=== PATIENT | female | born 1975 | race Caucasian/White ===

== ENCOUNTER 2023-06-02 15:36 | Inpatient (IN) ==
[2023-06-02 16:40] LABS: POC Urine Bilirubin Negative (Negative); POC Urine Blood Trace (Negative); POC Urine Glucose Normal (Normal); POC Urine Ketones 1+ (Small) (Negative); POC Urine Leukocytes Negative (Negative); POC Urine Nitrite Negative (Negative); POC Urine Protein Trace (Negative); POC Urine Urobilinogen Normal (Normal); POC Urine pH 5 (4.5-7.5)
[2023-06-02 16:45] LABS: Appearance Urine Clear (Clear); Bacteria Urine Automated Negative (Negative); Blood Urine Negative (Negative); Color Urine Orange; Epithelial Cell Urine Auto >30 /lpf (0-5); Glucose Urine UA Negative (Negative); Ketones Urine Trace (Negative); Leukocyte Esterase Urine Trace (Negative); Nitrite Urine Positive (Negative); Protein Urine Negative (Negative); RBC Urine Automated 0-4 /hpf (0-4); Urobilinogen Urine Negative (Negative); pH Urine 6.5 (4.5-7.5)
[2023-06-02 16:49] LABS: Albumin Globulin Ratio 1.6 (0.9-2); Albumin Level 4.2 gm/dl (3.4-5.0); BUN Creatinine Ratio 19.2 (10-20); Bilirubin,Total 3.7 mg/dl (0.2-1.0); Calcium 8.8 mg/dl (8.6-10.3); Creatinine Clr Calc Pharmacy 108.3 ml/min; Est GFR (African American) 113.7 ml/min; Est GFR (Non-African American) 98.1 ml/min; Globulin 2.6 gm/dl (2.5-4.0); Potassium 3.9 mmol/L (3.5-5.1); Total Protein 6.8 gm/dl (6.0-8.3)
[2023-06-02 16:56] LABS: Troponin I High Sensitivity 16.2 pg/ml (0-14)
--- NOTE | 2023-06-02 16:58 | XRay Report ---
SINGLE VIEW CHEST CLINICAL HISTORY: Dyspnea FINDINGS: 2 PA chest radiographs are obtained. No prior studies are available for comparison at the t eric of dictation. The cardiomediastinal silhouette is unremarkable. The lungs and pleural spaces are clear. No pneumothorax is seen. The bony thorax is grossly intact. IMPRESSION: No active disease in the chest. ACT 112: Negative or not required by law. Electronically signed by: Akshat Roe M.D. 06/02/2023 4:57 PM
[2023-06-02 17:00] LABS: Bilirubin Urine 1+ (Negative)
[2023-06-02 17:00] LABS: Basophils # (auto) 0.06 K/uL (0.00-0.20); Basophils % (auto) 0.6 %; Eosinophils # (auto) 0.09 K/uL (0.00-0.50); Eosinophils % (auto) 0.9 %; Hematocrit (blood only) 17.8 % (37.0-47.0); Hemoglobin 5.4 g/dl (12.0-16.0); Immature Granulocytes # (auto) 0.19 K/uL (0.01-0.20); Immature Granulocytes % (auto) 1.9 %; Lymphocytes # (auto) 1.13 K/uL (1.20-3.40); Lymphocytes % (auto) 11.3 %; Mean Corpuscular Hemoglobin 35.3 pg (25.0-34.0); Mean Corpuscular Hgb Conc 30.3 g/dL (32.0-36.0); Mean Corpuscular Volume 116.3 fL (80.0-100.0); Mean Platelet Volume 9.3 fL (9.4-12.4); Neutrophils # (auto) 8.17 K/uL (1.40-6.50); Neutrophils % (auto) 81.3 %; Nucleated RBC # (auto) 0.28 K/uL (0.00-0.12); Nucleated RBC % (auto) 2.8 %; Platelet Count 424 K/uL (130-400); Polychromasia 2+; RDW Coefficient of Variation 18.6 % (11.5-14.5); RDW Standard Deviation 67.9 fL (36.4-46.3); Red Blood Count 1.53 M/uL (4.20-5.40); White Blood Count 10.04 K/ul (4.8-10.8)
[2023-06-02] MEDS ORDERED: SODIUM CHLORIDE 0.9% 250 ML IV PRN ×3 (17:35→21:27)
--- NOTE | 2023-06-02 17:50 | Emergency Department Note ---
Impression & Plan Severe anemia, Elevated LFTs, Acute right flank pain, Elevated troponin ED Provider Note NAME: BRADLY JACINTO AGE: 47 SEX: Female INFORMANT: Patient ED PROVIDER(S): Johny Boles MD CHIEF COMPLAINT: Shortness of breath, palpitations PLAN: Disposition: Admitted Outpatient prescription management: none Referral: None MEDICAL DECISION MAKING: patient presented with the above complaints. She had an IV established and blood work obtained. She was found to have a severe anemia with a hemoglobin of 5.4. Patient has no history of anemia. Her chemistry panel also revealed the presence of elevated LFTs including an elevated bilirubin. Patient was consented for blood transfusion. CT imaging was ordered to further evaluate the LFT elevation and right flank pain. Patient did not have any tenderness in the right upper quadrant on physical examination. She declined analgesia. ECG did show tachycardia and poor R wave progression but no acute ST elevation or depression. Patient has not had any chest pain with her shortness of breath. The patient underwent CT imaging. Horseshoe kidney noted. No acute findings noted in the abdomen or pelvis per radiology. Ultrasound imaging ordered due to the elevated LFTs. Urinalysis did show some nitrate but no clear evidence of infection. Patient does not have a leukocytosis. Given the symptomatic anemia discussed transfusion. 2 units ordered. Blood bank to no antibody screen was abnormal. [facility] Patient was evaluated in the ER and admitted for further management. Care/management discussed with: manager heavy equipment Level of care consideration(s): After review of the information above and other included data, I feel the patient requires escalation of care to admission. Triage Nursing notes: reviewed and agree them. Vital Signs: reviewed and remarkable for tachycardia Additional History obtained from: none Chronic Medical/Social Conditions affecting care: none Prior/ Outside/ External records reviewed: none Differential Diagnosis: Infection, dehydration, metabolic abnormality, hypo/hyperglycemia, electrolyte disturbance, anemia, hypoxia, cardiac sources, intracerebral event, toxicologic, neurologic, as well as other pathologies. Diagnostics, independently interpreted by me: ECG: Twelve-lead ECG reveals sinus tachycardia 107 bpm. Poor R wave progression. Inferior Q waves. No ST elevation. Cardiac Monitoring: Cardiac monitoring ordered by me: The patient was placed on continuous cardiac monitoring and observed. It revealed a sinus tachycardia at 102 beats per minute without ectopy or evidence of dysrhythmia. Medical decision rules: none Imaging studies: Chest x-ray. Findings: A chest x-ray was performed and revealed no pneumothorax, effusion, infiltrate, pulmonary edema, free air under the diaphragm, or wide mediastinum. Impression: No acute disease. HPI: 47 year old Female arrives for evaluation of shortness of breath and palpitation. This started 2 days ago and is worsening. The patient also notes the following associated symptoms, dyspnea on exertion, dark urine, right flank pain that is nonradiating. The patient has found no relieving factors. Current pain is rated as 6/10. Pt denies LOC, headache, fevers, chills, diaphoresis, visual changes, neck pain, chest pain, nausea, vomiting, abdominal pain, left back pain, melena, hematochezia, numbness, weakness, lymphadenopathy, rash, or other complaints. PAST MEDICAL HISTORY: See Below, patient denies PAST SURGICAL HISTORY: See Below, SOCIAL HISTORY: See Below, non-smoker HOME MEDICATIONS: See Below ALLERGIES: See Below VITALS: See Below PHYSICAL EXAMINATION: GENERAL: Awake, tired-appearing, in no distress HENT: Normocephalic, atraumatic. Oropharynx unremarkable. EYES: Pale conjunctiva. Sclera non-icteric. NECK: Inspection normal. Non-tender. Supple. No nuchal rigidity. FROM. No masses. RESPIRATORY: Clear to auscultation. No wheezes. No rales. Normal respiratory effort. CARDIAC: Normal rate. Normal rhythm. No murmurs. No rubs. Extremities warm and well perfused. Pulses equal. No JVD. GI: Soft, non-distended. No tenderness to palpation. No rebound or guarding. No masses. RECTAL: Deferred. MUSCULOSKELETAL: Atraumatic. Chest examination reveals no tenderness. The back is symmetrical on inspection without obvious abnormality. There is no CVA tenderness to palpation. No joint edema. LOWER EXTREMITIES: Calves are equal size bilaterally and non-tender. No edema. No discoloration. NEURO: Normal sensorium. No sensory or motor deficits noted. SKIN: Mild jaundice present. No rash, petechia, purpura noted. PROCEDURES: none CRITICAL CARE: I have personally spent 40 minutes of critical care time in the direct management of this patient. This includes bedside care, interpretation of diagnostic studies, and testing, discussion with consultants, patient, and family members, and other required patient management activities. These minutes are in excess of all separately billable procedures. OBSERVATION NOTE: none Past Med/Surg History Medical History No significant past medical history Surgical History No pertinent past surgical history Family History Father Heart disease Other No family history of adverse response to anesthesia No family history of bleeding disorder Social History Smoking Status: Never smoker Hx Alcohol Use: No Hx Substance Use: No Preferred Language: Albanian Communication Ability: Effective current occupation: [employer] Feels Safe at Home: Yes Allergies Allergies Allergy/AdvReac Type Severity Reaction Status Date / Time No Known Allergies Allergy Verified 06/02/23 17:35 Home Meds Home Medications Medication Instructions Recorded Confirmed cranberry fruit concentrate 250 mg 250 mg PO DIRECTED PRN BLADDER 06/02/23 06/02/23 chewable tablet (Azo Cranberry) DISCOMFORT naproxen sodium 220 mg tablet 440 mg PO DIRECTED PRN Pain 06/02/23 06/02/23 (Aleve) Results & Data (ED) Vital Signs Vital Signs - 24 hr 06/02/23 15:48 06/02/23 17:02 06/02/23 17:05 Temperature 37.0 C Temperature Source Temporal Artery Scan Pulse Rate 106 H 102 H Pulse Rate [Apical] 102 H Pulse Rhythm Regular Pulse Rhythm [Apical] Regular Pulse Strength Normal Respiratory Rate 20 18 Respiratory Effort / Characteristics Non-Labored Spontaneous Non-Labored Respiratory Depth Normal Normal Respiratory Pattern Regular Blood Pressure 150/76 H Blood Pressure [Right Arm] 130/69 Blood Pressure Mean 100 Blood Pressure Mean [Right Arm] 89 Blood Pressure Position Sitting Pulse Oximetry 100 100 Oxygen Delivery Method Room Air Room Air Sepsis Recent Fever Within 48 Hours No Sepsis New/Unexplained Change in Mental Status No Sepsis Action Taken by Nursing No Action Required Laboratory Data 06/02/23 16:15 06/02/23 16:15 Lab Results 06/02/23 06/02/23 06/02/23 Range/Units 16:15 16:31 18:01 WBC 10.04 (4.8-10.8) K/ul RBC 1.53 L (4.20-5.40) M/uL Hgb 5.4 L* (12.0-16.0) g/dl Hct 17.8 L* (37.0-47.0) % MCV 116.3 H (80.0-100.0) fL MCH 35.3 H (25.0-34.0) pg MCHC 30.3 L (32.0-36.0) g/dL RDW Std Deviation 67.9 H (36.4-46.3) fL RDW Coeff of Lamar 18.6 H (11.5-14.5) % Plt Count 424 H (130-400) K/uL MPV 9.3 L (9.4-12.4) fL Immature Gran % (Auto) 1.9 % Neut % (Auto) 81.3 % Lymph % (Auto) 11.3 % Rains % (Auto) 4.0 % Eos % (Auto) 0.9 % Baso % (Auto) 0.6 % Neut # (Auto) 8.17 H (1.40-6.50) K/uL Lymph # (Auto) 1.13 L (1.20-3.40) K/uL Rains # (Auto) 0.40 (0.11-0.59) K/uL Eos # (Auto) 0.09 (0.00-0.50) K/uL Baso # (Auto) 0.06 (0.00-0.20) K/uL Immature Gran # (Auto) 0.19 (0.01-0.20) K/uL Absolute Nucleated RBC 0.28 H (0.00-0.12) K/uL Nucleated RBC % (auto) 2.8 % Polychromasia 2+ Sodium 133 L (136-145) mmol/L Potassium 3.9 (3.5-5.1) mmol/L Chloride 100 (98-107) mmol/L Carbon Dioxide 23 (21-32) mmol/L Anion Gap 10 (3-11) BUN 14 (6-23) mg/dl Creatinine 0.73 (0.6-1.2) mg/dl Est Cr Clr Drug Dosing 108.3 ml/min Est GFR ( Amer) 113.7 ml/min Est GFR (Non-Af Amer) 98.1 ml/min BUN/Creatinine Ratio 19.2 (10-20) Glucose 123 H (70-99(Fasting)) mg/dl Calcium 8.8 (8.6-10.3) mg/dl Total Bilirubin 3.7 H (0.2-1.0) mg/dl AST 47 H (13-39) U/L ALT 63 H (7-52) U/L Alkaline Phosphatase 63 (34-104) U/L Troponin I High Sens 16.2 H (0-14) pg/ml Total Protein 6.8 (6.0-8.3) gm/dl Albumin 4.2 (3.4-5.0) gm/dl Globulin 2.6 (2.5-4.0) gm/dl Albumin/Globulin Ratio 1.6 (0.9-2) Amylase 23 L (25-115) U/L Lipase 26 (11-82) U/L Urine Color Allen Urine Appearance Clear (Clear) Urine pH 6.5 (4.5-7.5) POC Urine pH 5 (4.5-7.5) Ur Specific Wagoner 1.020 (1.000-1.030) Urine Protein Negative (Negative) POC Urine Protein Trace H (Negative) Urine Glucose (UA) Negative (Negative) POC Ur Glucose (UA) Normal (Normal) Urine Ketones Trace H (Negative) POC Urine Ketones 1+ (Small) H (Negative) Urine Blood Negative (Negative) POC Urine Blood Trace H (Negative) Urine Nitrite Positive A (Negative) POC Urine Nitrite Negative (Negative) Urine Bilirubin 1+ H (Negative) POC Urine Bilirubin Negative (Negative) Urine Urobilinogen Negative (Negative) POC Urine Urobilinogen Normal (Normal) Ur Leukocyte Esterase Trace H (Negative) POC U Leukocyte Esteras Negative (Negative) Urine WBC (Auto) 1-5 (0-5) /hpf Urine RBC (Auto) 0-4 (0-4) /hpf U Hyaline Cast (Auto) 1-5 (0-5) /lpf U Epithel Cells (Auto) >30 H (0-5) /lpf Urine Bacteria (Auto) Negative (Negative) POC Ur Test NEG (NEG) Blood Type A Positive Blood Type Recheck A Positive Antibody Screen POSITIVE A Crossmatch See Detail Administered Medications Discontinued Medications Ioversol (Optiray 320 500ml) 92 ml IV ONCE ONE Stop: 06/02/23 17:54 Last Admin: 06/02/23 17:53 Dose: 92 ml Documented By: MATT Imaging Data Radiologist's Impression: Chest X-Ray 06/02/23 15:51 SINGLE VIEW CHEST CLINICAL HISTORY: Dyspnea FINDINGS: 2 PA chest radiographs are obtained. No prior studies are available for comparison at the time of dictation. The cardiomediastinal silhouette is unremarkable. The lungs and pleural spaces are clear. No pneumothorax is seen. The bony thorax is grossly intact. IMPRESSION: No active disease in the chest. ACT 112: Negative or not required by law. Electronically signed by: Akshat Roe M.D. 06/02/2023 4:57 PM Abdomen/Pelvis CT 06/02/23 17:35 CT SCAN OF THE ABDOMEN AND PELVIS WITH IV CONTRAST CLINICAL HISTORY: Right flank pain. Anemia. COMPARISON STUDY: No priors. TECHNIQUE: Following the IV administration of 92 cc of Optiray 320, CT scan of the abdomen and pelvis is performed from the lung bases to the proximal femora. Images are reviewed in the axial, sagittal, and coronal planes. IV contrast was administered without complication. A dose lowering technique was utilized adhering to the principles of ALARA. CT DOSE: 1503.96 mGy.cm FINDINGS: Lung bases: The heart is normal in size and without pericardial effusion. The lung bases are clear. Liver: The contrast-enhanced liver is enlarged, measuring 18.5 cm in length. The liver demonstrates diffusely diminished attenuation indicating steatosis. Fatty sparing is seen adjacent to the gallbladder fossa There is no intrahepatic biliary ductal dilatation. The hepatic veins and portal veins are patent. Gallbladder: Unremarkable. Spleen: Normal in size and attenuation. Pancreas: Unremarkable. Adrenal glands: Unremarkable. Kidneys: Horseshoe kidney is noted. The contrast enhanced renal moieties are normal in size and without hydronephrosis. The renal moieties enhance symmetrically. A retrocardiac left renal vein is incidentally noted. Abdominal vasculature: The abdominal aorta is normal in course and caliber. Bowel: No bowel obstruction is seen. The appendix is well-visualized and normal. Peritoneum/retroperitoneal: There is no intraperitoneal free air or abdominal ascites. There is no retroperitoneal hematoma. Lymphadenopathy: None. Pelvic viscera: The bladder, uterus, and adnexa are normal as visualized noting bilateral ovarian follicles Skeletal structures: No lytic or blastic lesions are seen. IMPRESSION: 1. No acute infectious or inflammatory findings are identified in the abdomen or pelvis. 2. Hepatomegaly and hepatic steatosis. 3. Horseshoe kidney is incidentally noted. 4. Additional findings as above. ACT 112: Negative or not required by law. Electronically signed by: Akshat Roe M.D. 06/02/2023 6:09 PM Discharge Plan Visit Data Chief Complaint: Illness Stated Complaint: TACHYCARDIA,SOB,LOWER BACK PAIN,DARK URINE ED Provider: Johny Boles Discharge Problem: Severe anemia, Elevated LFTs, Acute right flank pain, Elevated troponin Forms Stand Alone Forms: My [employer] Prescriptions Prescriptions: No Action naproxen sodium [Aleve] 220 mg Tablet 440 mg PO DIRECTED PRN (Reason: Pain) Azo Cranberry 250 mg Tablet,Chewable 250 mg PO DIRECTED PRN (Reason: BLADDER DISCOMFORT) Referrals Referrals: Mandy Barrientos MD [Primary Care Provider] -
[2023-06-02] MEDS ORDERED: OPTIRAY 320 500ml IV ONE (17:53)
--- NOTE | 2023-06-02 18:11 | CT Scan Report ---
CT SCAN OF THE ABDOMEN AND PELVIS WITH IV CONTRAST CLINICAL HISTORY: Right flank pain. Anemia. COMPARISON STUDY: No priors. TECHNIQUE: Following the IV administration of 92 cc of Optiray 320, CT scan of the abdomen and pelvi s is performed from the lung bases to the proximal femora. Images are reviewed in the axial, sagittal , and coronal planes. IV contrast was administered without complication. A dose lowering technique wa s utilized adhering to the principles of ALARA. CT DOSE: 1503.96 mGy.cm FINDINGS: Lung bases: The heart is normal in size and without pericardial effusion. The lung bases are clear. Liver: The contrast-enhanced liver is enlarged, measuring 18.5 cm in length. The liver demonstrates d iffusely diminished attenuation indicating steatosis. Fatty sparing is seen adjacent to the gallbladd er fossa There is no intrahepatic biliary ductal dilatation. The hepatic veins and portal veins are p atent. Gallbladder: Unremarkable. Spleen: Normal in size and attenuation. Pancreas: Unremarkable. Adrenal glands: Unremarkable. Kidneys: Horseshoe kidney is noted. The contrast enhanced renal moieties are normal in size and witho ut hydronephrosis. The renal moieties enhance symmetrically. A retrocardiac left renal vein is incide ntally noted. Abdominal vasculature: The abdominal aorta is normal in course and caliber. Bowel: No bowel obstruction is seen. The appendix is well-visualized and normal. Peritoneum/retroperitoneal: There is no intraperitoneal free air or abdominal ascites. There is no re troperitoneal hematoma. Lymphadenopathy: None. Pelvic viscera: The bladder, uterus, and adnexa are normal as visualized noting bilateral ovarian fol licles Skeletal structures: No lytic or blastic lesions are seen. IMPRESSION: 1. No acute infectious or inflammatory findings are identified in the abdomen or pelvis. 2. Hepatomegaly and hepatic steatosis. 3. Horseshoe kidney is incidentally noted. 4. Additional findings as above. ACT 112: Negative or not required by law. Electronically signed by: Akshat Roe M.D. 06/02/2023 6:09 PM
[2023-06-02] MEDS ORDERED: NSS + 20MEQ KCL 20 MEQ/1,000 ML BAG IV ONE (19:21)
[2023-06-02 19:30] LABS: Reticulocyte % 15.5 % (0.5-2.0); Reticulocytes # 0.23 10^6/uL (0.02-0.10)
--- NOTE | 2023-06-02 20:04 | Ultrasound Report ---
ULTRASOUND RIGHT UPPER QUADRANT ABDOMEN CLINICAL HISTORY: Elevated hepatic transaminases. Right flank pain. COMPARISON STUDY: Abdominal CT dated 06/02/2023 TECHNIQUE: Real-time, grayscale, and color flow sonography of the right upper quadrant of the abdomen was performed. Images are reviewed in the transverse and longitudinal planes. FINDINGS: Liver: The liver is enlarged and demonstrates heterogeneous increased echotexture indicating steatosi s. There is no intrahepatic biliary ductal dilatation. The main portal vein is patent. Gallbladder: The gallbladder is normal in appearance. No shadowing gallstones are identified. There i s no gallbladder wall thickening or pericholecystic fluid. A sonographic Barker's sign is reportedly absent. The common bile duct measures up to 0.4 cm in diameter. Pancreas: Visualized portions of the pancreatic head and body are normal in appearance. Right kidney: Survey images of the right kidney demonstrate normal size and echotexture. There is no hydronephrosis. Ascites: None. IMPRESSION: 1. No acute sonographic abnormality is seen in the right upper quadrant. 2. Hepatomegaly and hepatic steatosis. ACT 112: Negative or not required by law. Electronically signed by: Akshat Roe M.D. 06/02/2023 8:02 PM
[2023-06-02 20:05] LABS: Folate (Folic Acid),Ser orPlas 10.73 ng/ml (>5.38)
[2023-06-02] MEDS ORDERED: cefTRIAXone SODIUM 2,000 MG/50 ML BAG IV STA (20:25)
[2023-06-02 20:58] LABS: Troponin I High Sensitivity 11.9 pg/ml (0-14)
[2023-06-02 20:59] LABS: Ferritin 651.8 ng/ml (8-388)
--- NOTE | 2023-06-02 21:24 | History & Physical Report ---
Date of Service June 02, 2023 Assessment & Plan (1) Sepsis: Plan: Secondary to UTI Symptomatic anemia Hepatomegaly on imaging Hyperglycemia rule out DM Medical telemetry CS, Ceftriaxone Transfuse PRBC for symptomatic anemia, initially aim for hemoglobin of at least 7 Anemia workup, hematology consult re: new onset anemia Hepatitis workup, outpatient GI consult re: hepatomegaly Check hemoglobin A1c DVT prophylaxis. Lovenox subcu Full code Patient requesting updates providers. Mr. Norbert Perrin, contact #[phone]. Text document was generated using [employer] voice recognition software. It may contain grammatical or spelling errors. Kindly contact undersigned for clarification of any documentation item in question. History of Present Illness Chief Complaint: Shortness of breath, flank pain, weakness Primary Care Provider: Mandy Barrientos MD History obtained from patient, family, and records. No significant medical history. 2 days history of palpitations associated with worsening shortness of breath especially on exertion. No actual chest pain or headache complaints. Patient noted herself to be pale. Achy flank pain complaints without abdominal pain, black stools, bloody stools, hematuria, menorrhagia symptoms. No OTC herbal meds except for cranberry preparation. No previous blood transfusions. Patient brought by to ER for evaluation. Medical History as above Surgical History : Right hand glass trauma surgery Family History : DM, heart disease Personal/Social history : Non-smoker, no EtOH intake, currently unemployed, previous work at a [employer] Allergies Allergy/AdvReac Type Severity Reaction Status Date / Time No Known Allergies Allergy Verified 06/02/23 17:35 Home Medications Medication Instructions Recorded Confirmed Type cranberry fruit concentrate 250 mg 250 mg PO DIRECTED PRN BLADDER 06/02/23 06/02/23 History chewable tablet (Azo Cranberry) DISCOMFORT naproxen sodium 220 mg tablet 440 mg PO DIRECTED PRN Pain 06/02/23 06/02/23 History (Aleve) Past Med/Surg History Medical History No significant past medical history Surgical History No pertinent past surgical history Family History Father Heart disease Other No family history of adverse response to anesthesia No family history of bleeding disorder Social History Smoking Status: Never smoker Hx Alcohol Use: No Hx Substance Use: No Preferred Language: Kittitian Communication Ability: Effective current occupation: Retail - Production Support Consultant Feels Safe at Home: Yes Review of Systems Review of Systems: As per HPI, all other systems reviewed and negative Physical Exam Physical Exam: GENERAL: Comfortable, slightly anxious, morbidly obese, no respiratory distress SKIN: Pallor, warm HEENT: Pale palpebral conjunctivae, no ptosis, dry buccal mucosa NECK : Supple, short neck, no tenderness CHEST : CTA, no tenderness HEART : Tachycardic, no obvious murmurs ABDOMEN: Some distention, nontender EXTREMITIES : Minimal LE swelling, no LE tenderness, no other conspicuous deformities noted NEUROLOGIC : Coherent, no facial asymmetry, no other gross focality Results & Data Results & Data Vital Signs (Past 12 Hours) Vital Signs Temp Pulse Pulse Resp BP BP Pulse Ox 06/02/23 21:00 36.9 C 108 H 20 135/74 100 06/02/23 20:59 106 H 06/02/23 19:00 98 H 20 126/70 99 06/02/23 17:05 102 H 06/02/23 17:02 102 H 18 130/69 100 06/02/23 15:48 37.0 C 106 H 20 150/76 H 100 O2 Del Method 06/02/23 21:00 Room Air 06/02/23 20:59 06/02/23 19:00 Room Air 06/02/23 17:05 06/02/23 17:02 Room Air 06/02/23 15:48 Room Air Laboratory Results Laboratory Results WBC 10.04 K/ul (4.8-10.8) 06/02/23 16:15 RBC 1.53 M/uL (4.20-5.40) L 06/02/23 16:15 Hgb 5.4 g/dl (12.0-16.0) L* 06/02/23 16:15 Hct 17.8 % (37.0-47.0) L* 06/02/23 16:15 MCV 116.3 fL (80.0-100.0) H 06/02/23 16:15 MCH 35.3 pg (25.0-34.0) H 06/02/23 16:15 MCHC 30.3 g/dL (32.0-36.0) L 06/02/23 16:15 RDW Std Deviation 67.9 fL (36.4-46.3) H 06/02/23 16:15 RDW Coeff of [place]ar 18.6 % (11.5-14.5) H 06/02/23 16:15 Plt Count 424 K/uL (130-400) H 06/02/23 16:15 MPV 9.3 fL (9.4-12.4) L 06/02/23 16:15 Immature Gran % (Auto) 1.9 % 06/02/23 16:15 Neut % (Auto) 81.3 % 06/02/23 16:15 Lymph % (Auto) 11.3 % 06/02/23 16:15 [place] % (Auto) 4.0 % 06/02/23 16:15 Eos % (Auto) 0.9 % 06/02/23 16:15 Baso % (Auto) 0.6 % 06/02/23 16:15 Reticulocyte % (Auto) 15.5 % (0.5-2.0) H 06/02/23 16:15 Neut # (Auto) 8.17 K/uL (1.40-6.50) H 06/02/23 16:15 Lymph # (Auto) 1.13 K/uL (1.20-3.40) L 06/02/23 16:15 [place] # (Auto) 0.40 K/uL (0.11-0.59) 06/02/23 16:15 Eos # (Auto) 0.09 K/uL (0.00-0.50) 06/02/23 16:15 Baso # (Auto) 0.06 K/uL (0.00-0.20) 06/02/23 16:15 Reticulocyte # 0.23 10^6/uL (0.02-0.10) H 06/02/23 16:15 Immature Gran # (Auto) 0.19 K/uL (0.01-0.20) 06/02/23 16:15 Absolute Nucleated RBC 0.28 K/uL (0.00-0.12) H 06/02/23 16:15 Nucleated RBC % (auto) 2.8 % 06/02/23 16:15 Polychromasia 2+ 06/02/23 16:15 PT 11.0 Seconds (9.0-12.0) 06/02/23 16:15 INR 1.0 (0.9-1.1) 06/02/23 16:15 Sodium 133 mmol/L (136-145) L 06/02/23 16:15 Potassium 3.9 mmol/L (3.5-5.1) 06/02/23 16:15 Chloride 100 mmol/L (98-107) 06/02/23 16:15 Carbon Dioxide 23 mmol/L (21-32) 06/02/23 16:15 Anion Gap 10 (3-11) 06/02/23 16:15 BUN 14 mg/dl (6-23) 06/02/23 16:15 Creatinine 0.73 mg/dl (0.6-1.2) 06/02/23 16:15 Est Cr Clr Drug Dosing 108.3 ml/min 06/02/23 16:15 Est GFR ( Amer) 113.7 ml/min 06/02/23 16:15 Est GFR (Non-Af Amer) 98.1 ml/min 06/02/23 16:15 BUN/Creatinine Ratio 19.2 (10-20) 06/02/23 16:15 Glucose 123 mg/dl (70-99(Fasting)) H 06/02/23 16:15 Estimat Average Glucose Cancelled 06/02/23 16:15 Hemoglobin A1c Cancelled 06/02/23 16:15 Lactate 2.8 mmol/L (0.4-2.0) H* 06/02/23 20:00 Calcium 8.8 mg/dl (8.6-10.3) 06/02/23 16:15 Iron 343 mcg/dl (35-150) H 06/02/23 20:00 Transferrin 276 mg/dl (200-360) 06/02/23 20:00 Ferritin 651.8 ng/ml (8-388) H 06/02/23 20:00 Total Bilirubin 3.7 mg/dl (0.2-1.0) H 06/02/23 16:15 AST 47 U/L (13-39) H 06/02/23 16:15 ALT 63 U/L (7-52) H 06/02/23 16:15 Alkaline Phosphatase 63 U/L (34-104) 06/02/23 16:15 Lactate Dehydrogenase 602 U/L (86-244) H 06/02/23 16:15 Troponin I High Sens 11.9 pg/ml (0-14) D 06/02/23 20:00 Total Protein 6.8 gm/dl (6.0-8.3) 06/02/23 16:15 Albumin 4.2 gm/dl (3.4-5.0) 06/02/23 16:15 Globulin 2.6 gm/dl (2.5-4.0) 06/02/23 16:15 Albumin/Globulin Ratio 1.6 (0.9-2) 06/02/23 16:15 Amylase 23 U/L (25-115) L 06/02/23 16:15 Lipase 26 U/L (11-82) 06/02/23 16:15 Vitamin B12 302 pg/ml (180-914) 06/02/23 16:15 Folate 10.73 ng/ml (>5.38) 06/02/23 16:15 Procalcitonin 0.25 ng/ml (0-0.5) 06/02/23 19:19 Urine Color [place] 06/02/23 16:31 Urine Appearance Clear (Clear) 06/02/23 16:31 Urine pH 6.5 (4.5-7.5) 06/02/23 16:31 POC Urine pH 5 (4.5-7.5) 06/02/23 16:31 Ur Specific [place] 1.020 (1.000-1.030) 06/02/23 16:31 Urine Protein Negative (Negative) 06/02/23 16:31 POC Urine Protein Trace (Negative) H 06/02/23 16:31 Urine Glucose (UA) Negative (Negative) 06/02/23 16: POC Ur Glucose (UA) Normal (Normal) 06/02/23 16: Urine Ketones Trace (Negative) H 06/02/23 16:31 POC Urine Ketones 1+ (Small) (Negative) H 06/02/23 16:31 Urine Blood Negative (Negative) 06/02/23 16: POC Urine Blood Trace (Negative) H 06/02/23 16:31 Urine Nitrite Positive (Negative) A 06/02/23 16:31 POC Urine Nitrite Negative (Negative) 06/02/23 16:31 Urine Bilirubin 1+ (Negative) H 06/02/23 16:31 POC Urine Bilirubin Negative (Negative) 06/02/23 16:31 Urine Urobilinogen Negative (Negative) 06/02/23 16:31 POC Urine Urobilinogen Normal (Normal) 06/02/23 16:31 Ur Leukocyte Esterase Trace (Negative) H 06/02/23 16:31 POC U Leukocyte Esteras Negative (Negative) 06/02/23 16:31 Urine WBC (Auto) 1-5 /hpf (0-5) 06/02/23 16:31 Urine RBC (Auto) 0-4 /hpf (0-4) 06/02/23 16:31 U Hyaline Cast (Auto) 1-5 /lpf (0-5) 06/02/23 16:31 U Epithel Cells (Auto) >30 /lpf (0-5) H 06/02/23 16:31 Urine Bacteria (Auto) Negative (Negative) 06/02/23 16:31 POC Ur Test NEG (NEG) 06/02/23 16:31 Blood Type A Positive 06/02/23 18:01 Blood Type Recheck A Positive 06/02/23 18:01 Antibody Screen POSITIVE A 06/02/23 18:01 Direct Antiglob Test Positive (Negative) A 06/02/23 18:01 LAUREEN (IgG-AHG) 4+ (Negative) A 06/02/23 18:01 LAUREEN, Polyspecific 4+ (Negative) A 06/02/23 18:01 LAUREEN C3b, C3d 5 Min Neg (Negative) 06/02/23 18:01 Crossmatch See Detail 06/02/23 18:01 Impressions Chest X-Ray 06/02/23 15:51 SINGLE VIEW CHEST CLINICAL HISTORY: Dyspnea FINDINGS: 2 PA chest radiographs are obtained. No prior studies are available for comparison at the time of dictation. The cardiomediastinal silhouette is unremarkable. The lungs and pleural spaces are clear. No pneumothorax is seen. The bony thorax is grossly intact. IMPRESSION: No active disease in the chest. ACT 112: Negative or not required by law. Electronically signed by: Akshat Roe M.D. 06/02/2023 4:57 PM Abdomen/Pelvis CT 06/02/23 17:35 CT SCAN OF THE ABDOMEN AND PELVIS WITH IV CONTRAST CLINICAL HISTORY: Right flank pain. Anemia. COMPARISON STUDY: No priors. TECHNIQUE: Following the IV administration of 92 cc of Optiray 320, CT scan of the abdomen and pelvis is performed from the lung bases to the proximal femora. Images are reviewed in the axial, sagittal, and coronal planes. IV contrast was administered without complication. A dose lowering technique was utilized adhering to the principles of ALARA. CT DOSE: 1503.96 mGy.cm FINDINGS: Lung bases: The heart is normal in size and without pericardial effusion. The lung bases are clear. Liver: The contrast-enhanced liver is enlarged, measuring 18.5 cm in length. The liver demonstrates diffusely diminished attenuation indicating steatosis. Fatty sparing is seen adjacent to the gallbladder fossa There is no intrahepatic biliary ductal dilatation. The hepatic veins and portal veins are patent. Gallbladder: Unremarkable. Spleen: Normal in size and attenuation. Pancreas: Unremarkable. Adrenal glands: Unremarkable. Kidneys: Horseshoe kidney is noted. The contrast enhanced renal moieties are normal in size and without hydronephrosis. The renal moieties enhance symmetrically. A retrocardiac left renal vein is incidentally noted. Abdominal vasculature: The abdominal aorta is normal in course and caliber. Bowel: No bowel obstruction is seen. The appendix is well-visualized and normal. Peritoneum/retroperitoneal: There is no intraperitoneal free air or abdominal ascites. There is no retroperitoneal hematoma. Lymphadenopathy: None. Pelvic viscera: The bladder, uterus, and adnexa are normal as visualized noting bilateral ovarian follicles Skeletal structures: No lytic or blastic lesions are seen. IMPRESSION: 1. No acute infectious or inflammatory findings are identified in the abdomen or pelvis. 2. Hepatomegaly and hepatic steatosis. 3. Horseshoe kidney is incidentally noted. 4. Additional findings as above. ACT 112: Negative or not required by law. Electronically signed by: Akshat Roe M.D. 06/02/2023 6:09 PM Gallbladder Ultrasound 06/02/23 18:17 ULTRASOUND RIGHT UPPER QUADRANT ABDOMEN CLINICAL HISTORY: Elevated hepatic transaminases. Right flank pain. COMPARISON STUDY: Abdominal CT dated 06/02/2023 TECHNIQUE: Real-time, grayscale, and color flow sonography of the right upper quadrant of the abdomen was performed. Images are reviewed in the transverse and longitudinal planes. FINDINGS: Liver: The liver is enlarged and demonstrates heterogeneous increased echotexture indicating steatosis. There is no intrahepatic biliary ductal dilatation. The main portal vein is patent. Gallbladder: The gallbladder is normal in appearance. No shadowing gallstones are identified. There is no gallbladder wall thickening or pericholecystic fluid. A sonographic Barker's sign is reportedly absent. The common bile duct measures up to 0.4 cm in diameter. Pancreas: Visualized portions of the pancreatic head and body are normal in appearance. Right kidney: Survey images of the right kidney demonstrate normal size and echotexture. There is no hydronephrosis. Ascites: None. IMPRESSION: 1. No acute sonographic abnormality is seen in the right upper quadrant. 2. Hepatomegaly and hepatic steatosis. ACT 112: Negative or not required by law. Electronically signed by: Akshat Roe M.D. 06/02/2023 8:02 PM Diagnostic Findings EKG as per my interpretation : Rate 110, sinus tachycardia, normal axis, septal infarct, no ischemia
[2023-06-02] MEDS ORDERED: LORazepam 0.5 MG TAB PO PRN (21:27)
[2023-06-02] MEDS ORDERED: PROMETHAZINE HCL 12.5 MG in SODIUM CHLORIDE 0.9% 50 ML IV PRN (21:27)
[2023-06-02 21:57] LABS: Magnesium 2.2 mg/dl (1.7-2.4)
[2023-06-03 07:03] LABS: BUN Creatinine Ratio 17.2 (10-20); Calcium 8.2 mg/dl (8.6-10.3); Creatinine Clr Calc Pharmacy 123.3 ml/min; Est GFR (African American) 123.2 ml/min; Est GFR (Non-African American) 106.3 ml/min; Potassium 4.1 mmol/L (3.5-5.1)
[2023-06-03 07:44] LABS: Hematocrit (blood only) 15.2 % (37.0-47.0); Hemoglobin 4.7 g/dl (12.0-16.0); Mean Corpuscular Hemoglobin 36.4 pg (25.0-34.0); Mean Corpuscular Hgb Conc 30.9 g/dL (32.0-36.0); Mean Corpuscular Volume 117.8 fL (80.0-100.0); Mean Platelet Volume 9.4 fL (9.4-12.4); Nucleated RBC # (auto) 0.21 K/uL (0.00-0.12); Nucleated RBC % (auto) 2.6 %; Platelet Count 396 K/uL (130-400); RDW Coefficient of Variation 19.5 % (11.5-14.5); RDW Standard Deviation 72.3 fL (36.4-46.3); Red Blood Count 1.29 M/uL (4.20-5.40); White Blood Count 8.07 K/ul (4.8-10.8)
[2023-06-03 08:32] LABS: Anisocytosis Present; Basophils # (auto) 0.05 K/uL (0.00-0.20); Basophils % (auto) 0.6 %; Eosinophils # (auto) 0.13 K/uL (0.00-0.50); Eosinophils % (auto) 1.6 %; Immature Granulocytes # (auto) 0.17 K/uL (0.01-0.20); Immature Granulocytes % (auto) 2.1 %; Lymphocytes # (auto) 1.13 K/uL (1.20-3.40); Monocytes # (auto) 0.43 K/uL (0.11-0.59); Monocytes % (auto) 5.3 %; Neutrophils # (auto) 6.16 K/uL (1.40-6.50); Neutrophils % (auto) 76.4 %; Polychromasia 3+
[2023-06-03] MEDS ORDERED: ENOXAPARIN INJ 40 MG/0.4 ML SYR SQ SCH (09:00)
[2023-06-03] MEDS ORDERED: POLYETHYLENE (MIRALAX) 17 GM PACK PO PRN (11:37)
[2023-06-03] MEDS ORDERED: DOCUSATE SODIUM 100 MG CAP PO PRN (11:37)
--- NOTE | 2023-06-03 15:55 | Hospitalist Progress Note ---
Date of Service June 03, 2023 Assessment & Plan (1) Sepsis: Plan: Symptomatic macrocytic anemia Thrombocytosis -- Peripheral smear showed no signs of significant schistocytes Increased iron, ferritin levels on iron panel Normal vitamin B12, folate levels Elevated reticulocytes Check LDH, haptoglobin, erythropoietin levels FOBT pending Transfuse PRBCs as ordered Monitor CBC Hematology consulted No obvious bleeding issues Lactic acidosis Right flank pain Abnormal urinalysis Suspected UTI --CTA:No acute infectious or inflammatory findings are identified in the abdomen or pelvis. Hepatomegaly and hepatic steatosis. Horseshoe kidney is incidentally noted. --Blood, urine culture pending Empirically on Rocephin Hepatomegaly Hepatic steatosis Hyperbilirubinemia Mild LFT elevation Hepatitis panel pending May need further evaluation Monitor LFTs Horseshoe kidneys Incidental finding on CT May need follow-up with urology as outpatient if flank pain persistent Morbid obesity BMI 42 DVT Px: SCDs for now Re: Significant anemia Code Status Full code Admission and Anticipated Discharge Date Admission Date: June 02, 2023 Subjective Patient is seen and examined at bedside States having chest discomfort, dyspnea on minimal exertion Right flank pain resolved Denies any dizziness, nausea, vomiting, diarrhea Family at bedside Review of Systems Review of Systems: All systems reviewed & are unremarkable except as noted in Subjective Physical Exam Physical Exam: Physical Exam: Vitals signs as noted above General Appearance: Obese, no apparent distress Head: normocephalic, Atraumatic Eyes: normal inspection, EOMI Neck: supple, Trachea midline Respiratory/Chest: Normal breath sounds, CTA, No accessory muscle use Cardiovascular: S1, S2, No murmur, + tachycardia Abdomen/GI:Soft, Non tender, Bowel sounds present Extremities/Musculoskeletal:normal inspection, no edema Neurologic/Psych:AAOX3, grossly no focal neurological deficits Skin: normal color, warm Results & Data Results & Data Vital Signs (Past 12 Hours) Vital Signs Temp Pulse Pulse Resp BP Pulse Ox O2 Del Method 06/03/23 14:56 128 H 06/03/23 11:18 36.9 C 104 H 16 152/80 H 99 Room Air 06/03/23 07:56 36.9 C 96 H 16 104/57 L 97 Room Air 06/03/23 07:51 Room Air 06/03/23 07:07 96 H Laboratory Results Short CBC 06/02/23 06/03/23 06/03/23 Range/Units 16:15 05:46 07:04 WBC 10.04 Cancelled 8.07 (4.8-10.8) K/ul Hgb 5.4 L* Cancelled 4.7 L* (12.0-16.0) g/dl Hct 17.8 L* Cancelled 15.2 L* (37.0-47.0) % Plt Count 424 H Cancelled 396 (130-400) K/uL BMP 06/02/23 06/03/23 16:15 05:46 Sodium 133 L 138 Potassium 3.9 4.1 Chloride 100 106 Carbon Dioxide 23 25 BUN 14 11 Creatinine 0.73 0.64 Glucose 123 H 126 H Calcium 8.8 8.2 L Liver Function 06/02/23 Range/Units 16:15 Total Bilirubin 3.7 H (0.2-1.0) mg/dl AST 47 H (13-39) U/L ALT 63 H (7-52) U/L Alkaline Phosphatase 63 (34-104) U/L Albumin 4.2 (3.4-5.0) gm/dl Urine 06/02/23 Range/Units 16:31 Urine Color [place] Urine Appearance Clear (Clear) Urine pH 6.5 (4.5-7.5) Ur Specific [place] 1.020 (1.000-1.030) Urine Protein Negative (Negative) Urine Glucose (UA) Negative (Negative)
[2023-06-03] MEDS ORDERED: SODIUM CHLORIDE 0.9% 250 ML IV PRN (22:56)
[2023-06-04] MEDS: cefTRIAXone SODIUM 2,000 MG in DEXTROSE 5 % MINI-B 50 ML IV SCH ×2 (02:09→21:40)
[2023-06-04 05:23] LABS: Albumin Globulin Ratio 1.4 (0.9-2); Albumin Level 3.7 gm/dl (3.4-5.0); Bilirubin Direct 0.6 mg/dl (0-0.2); Bilirubin,Total 2.9 mg/dl (0.2-1.0); Calcium 8.1 mg/dl (8.6-10.3); Creatinine Clr Calc Pharmacy 112.7 ml/min; Est GFR (African American) 119.6 ml/min; Est GFR (Non-African American) 103.2 ml/min; Globulin 2.7 gm/dl (2.5-4.0); Potassium 4.1 mmol/L (3.5-5.1); Total Protein 6.4 gm/dl (6.0-8.3)
[2023-06-04 06:10] LABS: Hematocrit (blood only) 22.4 % (37.0-47.0); Hemoglobin 7.1 g/dl (12.0-16.0); Mean Corpuscular Hemoglobin 33.8 pg (25.0-34.0); Mean Corpuscular Hgb Conc 31.7 g/dL (32.0-36.0); Mean Corpuscular Volume 106.7 fL (80.0-100.0); Mean Platelet Volume 9.1 fL (9.4-12.4); Nucleated RBC # (auto) 0.37 K/uL (0.00-0.12); Nucleated RBC % (auto) 3.5 %; Platelet Count 297 K/uL (130-400); RDW Coefficient of Variation 21.7 % (11.5-14.5); RDW Standard Deviation 66.6 fL (36.4-46.3); White Blood Count 10.51 K/ul (4.8-10.8)
[2023-06-04 06:11] LABS: Basophils # (auto) 0.08 K/uL (0.00-0.20); Basophils % (auto) 0.8 %; Eosinophils # (auto) 0.15 K/uL (0.00-0.50); Eosinophils % (auto) 1.4 %; Immature Granulocytes # (auto) 0.19 K/uL (0.01-0.20); Immature Granulocytes % (auto) 1.8 %; Lymphocytes # (auto) 1.27 K/uL (1.20-3.40); Lymphocytes % (auto) 12.1 %; Monocytes # (auto) 0.65 K/uL (0.11-0.59); Monocytes % (auto) 6.2 %; Neutrophils # (auto) 8.17 K/uL (1.40-6.50); Neutrophils % (auto) 77.7 %; Polychromasia 2+
--- NOTE | 2023-06-04 06:15 | Electrocardiogram Report ---
Test Reason : Blood Pressure : / mmHG Vent. Rate : 107 BPM Atrial Rate : 107 BPM P-R Int : 132 ms QRS Dur : 068 ms QT Int : 346 ms P-R-T Axes : 023 008 029 degrees QTc Int : 461 ms Sinus tachycardia Cannot rule out Anterior infarct , age undetermined Abnormal ECG No previous ECGs available Confirmed by Tobias Traylor ([id number]) on 06/04/2023 6:14:50 AM Referred By: REFERRED SELF Confirmed By:Tobias Traylor
--- NOTE | 2023-06-04 09:03 | Oncology Consultation ---
Date of Consultation June 04, 2023 Assessment & Plan (1) Severe anemia: At this point my chief concern is a primary hemolytic disorder as her Fortnuato test was positive. However this was done after a blood transfusion so I am not sure whether this is actually a hemolytic condition or not. Her rest of the a nemia workup was negative as she had higher than normal ferritin level, close normal B12 level. My strong consideration is that we are dealing with warm AIHA, given that the Fortunato test is positive, LDH was elevated, total bilirubin was elevated most of indirect fraction. I will start the patient on stress dose steroids with Solu- Medrol 1 g daily Bone marrow biopsy was ordered and has been performed, we will await the results of the bone marrow biopsy. Plan Hematology will continue to follow the patient and make appropriate recommendations History of Present Illness Reason for Consultation: Pancytopenia Attending Physician: Hussain Root MD History of Present Illness The patient is a very pleasant 47-year-old woman who initially presented to the ER complaining of worsening shortness of breath, flank pain, weakness. She does not drink alcohol. While in the hospital she was noted to be severely anemic with a hemoglobin of 5.4 g/dL which dropped down to 4.7 g/dL. She received 2 units of blood transfusion subsequently hemoglobin improved to 7.1 g/dL. Total bilirubin was elevated 2.9, predominantly of indirect fraction. LDH was elevated at 551. Rest of the labs were ordered including B12 level which was 302,, haptoglobin level is still pending, Fortunato test was positive. Liver enzymes were initially elevated including AST and ALT. Serum ferritin was high. Viral studies were done which was negative. Flow cytometric is pending. Stool occult blood was negative. Allergies Allergy/AdvReac Type Severity Reaction Status Date / Time No Known Allergies Allergy Verified 06/02/23 17:35 Home Medications Medication Instructions Recorded Confirmed Type cranberry fruit concentrate 250 mg 250 mg PO DIRECTED PRN BLADDER 06/02/23 06/02/23 History chewable tablet (Azo Cranberry) DISCOMFORT naproxen sodium 220 mg tablet 440 mg PO DIRECTED PRN Pain 06/02/23 06/02/23 History (Aleve) Patient History Medical History No significant past medical history Surgical History No pertinent past surgical history Family History Father Heart disease Other No family history of adverse response to anesthesia No family history of bleeding disorder Social History Smoking Status: Never smoker Hx Alcohol Use: No Hx Substance Use: No Preferred Language: Divehi Communication Ability: Effective Surgical Assistant Required: No Beliefs That Will Affect Care: None Current Living Situation: Spouse current occupation: Retail - Corporate Associate Attorney Other Information That Helps Us Care for You: No Feels Safe at Home: Yes Safety Concerns: Feels Safe At This Time Assistive Devices: Glasses Results & Data Vital Signs (Past 12 Hours) Vital Signs Temp Pulse Pulse Resp BP BP Pulse Ox 06/04/23 07:47 37.1 C 93 H 18 140/84 96 06/04/23 07:16 83 06/04/23 04:00 37.5 C 92 H 18 107/67 95 06/04/23 01:26 37.7 C H 101 H 18 125/79 96 06/04/23 00:40 37 C 98 H 18 122/75 99 06/04/23 00:19 106 H 06/04/23 00:10 37 C 92 H 18 127/78 98 06/03/23 23:55 37 C 98 H 18 126/78 06/03/23 23:41 37.1 C 102 H 20 121/78 96 06/03/23 23:24 36.8 C 96 H 20 122/76 98 06/03/23 23:10 37.5 C 98 H 20 122/72 95 06/03/23 21:35 36.9 C 100 H 20 116/67 99 06/03/23 21:05 37 C 106 H 20 129/74 99 O2 Del Method 06/04/23 07:47 Room Air 06/04/23 07:16 06/04/23 04:00 Room Air 06/04/23 01:26 06/04/23 00:40 06/04/23 00:19 06/04/23 00:10 06/03/23 23:55 06/03/23 23:41 06/03/23 23:24 06/03/23 23:10 06/03/23 21:35 01/15/24 21:05
[2023-06-04 10:12] LABS: HBSAG NON-REACTIVE (NON-REACTIVE); Hepatitis A Antibody IgM NON-REACTIVE (NON-REACTIVE); Hepatitis B Core Antibody IgM NON-REACTIVE (NON-REACTIVE)
[2023-06-04] MEDS ORDERED: fentaNYL citrate PF 100 MCG/2 ML VIAL ONE (13:44)
[2023-06-04] MEDS ORDERED: ACETAMINOPHEN 1000 MG/100 ML IV IV ONE (13:45)
--- NOTE | 2023-06-04 14:33 | CT Scan Report ---
CT-guided bone marrow biopsy INDICATION: Anemia PROCEDURE: Procedure and risks were explained. Informed consent was obtained. A final timeout was com pleted. The patient was placed prone on the CT exam table. The left gluteal region was prepped and dr aped in sterile fashion. 1% buffered lidocaine was utilized for skin anesthesia. The patient received 1 g Tylenol IV. Utilizing CT guidance, an 11-gauge bone biopsy needle was advanced into the left iliac bone. Multiple aspirates and one bone core was obtained and given to the lab. The needle was removed and Band-Aid a pplied. The patient tolerated the procedure well. Vital signs will be monitored postprocedure. IMPRESSION: Bone marrow biopsy as above. Performed, dictated, and signed by Jarad Bell PA-C; to be co-signed by Dr. Rishi Lin. Electronically signed by: Rishi Lin M.D. 06/04/2023 2:37 PM
--- NOTE | 2023-06-04 16:18 | Hospitalist Progress Note ---
Date of Service June 04, 2023 Assessment & Plan (1) Sepsis: Plan: Symptomatic macrocytic anemia Thrombocytosis S/P 3 units PRBCs -- Peripheral smear showed no signs of significant schistocytes Increased iron, ferritin levels on iron panel Normal vitamin B12, folate levels Elevated reticulocytes Haptoglobin pending LDH 551 Erythropoietin levels pending FOBT negative Transfuse PRBCs as ordered Monitor CBC Hb:7.1 today Hematology consulted: Recommended bone marrow biopsy No obvious bleeding issues Consulted IR for bone marrow biopsy Lactic acidosis Right flank pain Abnormal urinalysis Less likley UTI --CTA:No acute infectious or inflammatory findings are identified in the abdomen or pelvis. Hepatomegaly and hepatic steatosis. Horseshoe kidney is incidentally noted. --Blood cultures: Negative to date -- Urine culture grew gamma strep not Enterococcus (60,000 colonies) Empirically on Rocephin--will discontinue if cultures remain negative Hepatomegaly Hepatic steatosis Hyperbilirubinemia Mild LFT elevation Hepatitis panel pending May need further evaluation Monitor LFTs--trending down Horseshoe kidneys Incidental finding on CT May need follow-up with urology as outpatient if flank pain persistent Morbid obesity BMI 42 DVT Px: SCDs for now Re: Significant anemia Code Status Full code Admission and Anticipated Discharge Date Admission Date: June 02, 2023 Subjective Patient is seen and examined at bedside Subjectively feels a lot better today Denies any bleeding issues Chest pain, dyspnea resolved Discussed with oncology today Denies any dizziness, nausea, vomiting, diarrhea, abdominal pain Plan for bone marrow biopsy today Review of Systems Review of Systems: All systems reviewed & are unremarkable except as noted in Subjective Physical Exam Physical Exam: Physical Exam: Vitals signs as noted above General Appearance: Obese, no apparent distress Head: normocephalic, Atraumatic Eyes: normal inspection, EOMI Neck: supple, Trachea midline Respiratory/Chest: Normal breath sounds, CTA, No accessory muscle use Cardiovascular: S1, S2, No murmur, + tachycardia Abdomen/GI:Soft, Non tender, Bowel sounds present Extremities/Musculoskeletal:normal inspection, no edema Neurologic/Psych:AAOX3, grossly no focal neurological deficits Skin: normal color, warm Results & Data Results & Data Vital Signs (Past 12 Hours) Vital Signs Temp Pulse Pulse Resp BP Pulse Ox O2 Del Method 06/04/23 16:03 36.3 C L 82 18 116/72 95 Room Air 06/04/23 15:33 36.7 C 84 18 114/72 06/04/23 15:21 90 06/04/23 15:17 36.8 C 82 18 104/68 97 Room Air 06/04/23 15:12 37.0 C 82 18 138/84 96 Room Air 06/04/23 14:41 36.8 C 72 18 128/70 96 Room Air 06/04/23 11:13 36.9 C 78 20 137/85 98 Room Air 06/04/23 09:46 Room Air 06/04/23 07:47 37.1 C 93 H 18 140/84 96 Room Air 06/04/23 07:16 83 Laboratory Results Short CBC 06/04/23 Range/Units 04:47 WBC 10.51 (4.8-10.8) K/ul Hgb 7.1 L (12.0-16.0) g/dl Hct 22.4 L (37.0-47.0) % Plt Count 297 (130-400) K/uL BMP 06/04/23 04:47 Sodium 136 Potassium 4.1 Chloride 104 Carbon Dioxide 24 BUN 14 Creatinine 0.70 Glucose 130 H Calcium 8.1 L Liver Function 06/04/23 Range/Units 04:47 Total Bilirubin 2.9 H (0.2-1.0) mg/dl Direct Bilirubin 0.6 H (0-0.2) mg/dl AST 27 (13-39) U/L ALT 43 (7-52) U/L Alkaline Phosphatase 58 (34-104) U/L Albumin 3.7 (3.4-5.0) gm/dl
[2023-06-04] MEDS ORDERED: methylPREDNISolone 1,000 MG in DEXTROSE 5% 250 ML IV STA (19:08)
[2023-06-05 00:49] LABS: A calco-baum cmplx NotReported Not Detected (NotDetected); Bact fragilis Not Reported Not Detected (NotDetected); Blood Culture Id Panel See PCR Comment (NotDetected); C auris Not Reported Not Detected (NotDetected); Calbicans Not Reported Not Detected (NotDetected); Candida glabrata Not Reported Not Detected (NotDetected); Candida krusei Not Reported Not Detected (NotDetected); Cneoformans/gatti Not Reported Not Detected (NotDetected); Cparapsilosis Not Reported Not Detected (NotDetected); E cloacae compx Not Reported Not Detected (NotDetected); Efaecalis Not Reported Not Detected (NotDetected); Efaecium Not Reported Not Detected (NotDetected); Enterobacterales Not Reported Not Detected (NotDetected); Escherichia coli Not Reported Not Detected (NotDetected); H influenzae Not Reported Not Detected (NotDetected); K aerogenes Not Reported Not Detected (NotDetected); Koxytoca Not Reported Not Detected (NotDetected); Kpneumoniae grp Not Reported Not Detected (NotDetected); Lmonocyt Not Reported Not Detected (NotDetected); N meningitidis Not Reported Not Detected (NotDetected); P aeruginosa Not Reported Not Detected (NotDetected); Proteus spp Not Reported Not Detected (NotDetected); Salmonella spp Not Reported Not Detected (NotDetected); Smarcescens Not Reported Not Detected (NotDetected); Staph lugdunensis Not Reported Not Detected (NotDetected); Staph spp. Not Reported DETECTED (NotDetected); Staphaureus Not Reported Not Detected (NotDetected); Staphepi Not Reported Not Detected (NotDetected); Stenmaltophilia Not Reported Not Detected (NotDetected); Strep agal(GrpB) Not Reported Not Detected (NotDetected); Strep pneum Not Reported Not Detected (NotDetected); Strep pyog (GrpA) Not Reported Not Detected (NotDetected); Strep spp Not Reported Not Detected (NotDetected)
[2023-06-05 01:03] LABS: Staphylococcus spp. DETECTED (NotDetected)
[2023-06-05] MEDS: ACETAMINOPHEN 500 MG TAB PO PRN (03:34)
[2023-06-05 06:29] LABS: Albumin Globulin Ratio 1.4 (0.9-2); Albumin Level 4.1 gm/dl (3.4-5.0); Bilirubin Direct 0.5 mg/dl (0-0.2); Bilirubin,Total 1.7 mg/dl (0.2-1.0); Calcium 8.5 mg/dl (8.6-10.3); Est GFR (African American) 119.6 ml/min; Est GFR (Non-African American) 103.2 ml/min; Magnesium 2.2 mg/dl (1.7-2.4); Potassium 4.3 mmol/L (3.5-5.1); Total Protein 7.1 gm/dl (6.0-8.3)
[2023-06-05 08:22] LABS: Hematocrit (blood only) 23.9 % (37.0-47.0); Hemoglobin 7.7 g/dl (12.0-16.0); Mean Corpuscular Hemoglobin 35.5 pg (25.0-34.0); Mean Corpuscular Hgb Conc 32.2 g/dL (32.0-36.0); Mean Corpuscular Volume 110.1 fL (80.0-100.0); Mean Platelet Volume 9.5 fL (9.4-12.4); Nucleated RBC % (auto) 0.8 %; Platelet Count 296 K/uL (130-400); RDW Coefficient of Variation 22.2 % (11.5-14.5); RDW Standard Deviation 79.3 fL (36.4-46.3); Red Blood Count 2.17 M/uL (4.20-5.40); White Blood Count 12.17 K/ul (4.8-10.8)
[2023-06-05 09:05] LABS: Basophils # (auto) 0.02 K/uL (0.00-0.20); Basophils % (auto) 0.2 %; Eosinophils # (auto) 0.01 K/uL (0.00-0.50); Eosinophils % (auto) 0.1 %; Immature Granulocytes # (auto) 0.16 K/uL (0.01-0.20); Immature Granulocytes % (auto) 1.3 %; Lymphocytes # (auto) 0.61 K/uL (1.20-3.40); Monocytes # (auto) 0.14 K/uL (0.11-0.59); Monocytes % (auto) 1.2 %; Neutrophils # (auto) 11.23 K/uL (1.40-6.50); Neutrophils % (auto) 92.2 %; Polychromasia 2+
[2023-06-05 12:33] LABS: Erythropoietin 173.1 mIU/mL (2.6-18.5); Haptoglobin <8 mg/dL (43-212)
--- NOTE | 2023-06-05 13:00 | Hospitalist Progress Note ---
Date of Service June 05, 2023 Assessment & Plan (1) Sepsis: Plan: Symptomatic macrocytic anemia Thrombocytosis S/P 3 units PRBCs Patient presented with shortness of breath and palpitation. Her hemoglobin on admission was 5.4. MCV of 116 Ferritin elevated to 651 Total increased bilirubin, elevated AST, ALT and LDH Peripheral smear showed no signs of significant schistocytes Normal vitamin B12, folate levels Elevated reticulocyte count Erythropoietin elevated Stool occult negative. Hepatitis negative Haptoglobin less than 8. Fortunato test positive. CT abdomen and pelvis shows enlarged liver. FOBT negative Concern for primary hematologic disorder as Fortunato test is positive with elevated bilirubin, elevated LDH low haptoglobin. Started on IV methylprednisolone 1 g daily as per hematology. Bone marrow biopsy done on June 04, 2023; await results. Hematology on board; will follow-up recommendation Lactic acidosis Right flank pain Abnormal urinalysis Less likley UTI --CTA:No acute infectious or inflammatory findings are identified in the abdomen or pelvis. Hepatomegaly and hepatic steatosis. Horseshoe kidney is incidentally noted. --Blood cultures: 2 out of 4 bottles showing gram-positive cocci in clusters. Discussed with microbiology; gram-positive cocaine cluster not Staph aureus as BioFire negative. Await final identification. -- Urine culture grew gamma strep not Enterococcus (60,000 colonies) Continue on ceftriaxone. Repeat blood culture sent.. Horseshoe kidneys Incidental finding on CT May need follow-up with urology as outpatient if flank pain persistent Morbid obesity BMI 42 DVT Px: SCDs for now Re: Significant anemia Code Status Full code Time spent evaluating patient, direct bedside care, chart review, placing orders, interpretation of diagnostic studies, discussion with consultants, patient, and family members, as well as other required patient management activities is 50-minutes Please note the above document was generated using voice recognition software. It may contain grammatical, syntax or spelling errors. Any formal questions or concerns about the content, text or information contained within the body of this dictation should be directly addressed to the provider for clarification Admission and Anticipated Discharge Date Admission Date: June 02, 2023 Subjective Patient seen and examined at bedside. Comfortable; not in distress. She reports that she is feeling much better today. She reports that her palpitation and shortness of breath has improved. Denies fever, chills, chest pain, shortness of breath, abdominal pain or urinary symptoms. No significant overnight events Review of Systems Review of Systems: All systems reviewed & are unremarkable except as noted in Subjective Physical Exam Physical Exam: Physical Exam: Vitals signs as noted above General Appearance: Obese, no apparent distress Head: normocephalic, Atraumatic Eyes: normal inspection, EOMI Neck: supple, Trachea midline Respiratory/Chest: Normal breath sounds, CTA, No accessory muscle use Cardiovascular: S1, S2, No murmur Abdomen/GI:Soft, Non tender, Bowel sounds present Extremities/Musculoskeletal:normal inspection, no edema Neurologic/Psych:AAOX3, grossly no focal neurological deficits Skin: normal color, warm Results & Data Results & Data Vital Signs (Past 12 Hours) Vital Signs Temp Pulse Pulse Resp BP Pulse Ox O2 Del Method 06/05/23 11:33 36.8 C 101 H 18 163/92 H 99 Room Air 06/05/23 07:36 36.5 C 85 18 111/69 99 Room Air 06/05/23 07:31 80 06/05/23 03:10 36.9 C 83 18 109/70 97 Room Air
[2023-06-05] MEDS: methylPREDNISolone 1,000 MG in DEXTROSE 5% 250 ML IV SCH (18:49)
[2023-06-05] MEDS: cefTRIAXone SODIUM 2,000 MG in DEXTROSE 5 % MINI-B 50 ML IV SCH (20:16)
[2023-06-06] MEDS: ACETAMINOPHEN 500 MG TAB PO PRN (06:19)
[2023-06-06 06:41] LABS: BUN Creatinine Ratio 24.6 (10-20); Calcium 8.6 mg/dl (8.6-10.3); Creatinine Clr Calc Pharmacy 113.9 ml/min; Est GFR (African American) 120.1 ml/min; Est GFR (Non-African American) 103.7 ml/min; Potassium 4.3 mmol/L (3.5-5.1)
[2023-06-06 07:06] LABS: Hematocrit (blood only) 23.6 % (37.0-47.0); Hemoglobin 7.3 g/dl (12.0-16.0); Mean Corpuscular Hgb Conc 30.9 g/dL (32.0-36.0); Mean Corpuscular Volume 116.3 fL (80.0-100.0); Mean Platelet Volume 9.6 fL (9.4-12.4); Nucleated RBC # (auto) 0.05 K/uL (0.00-0.12); Nucleated RBC % (auto) 0.3 %; Platelet Count 307 K/uL (130-400); RDW Coefficient of Variation 23.6 % (11.5-14.5); RDW Standard Deviation 89.9 fL (36.4-46.3); Red Blood Count 2.03 M/uL (4.20-5.40)
[2023-06-06 07:07] LABS: Anisocytosis Present; Basophils # (auto) 0.03 K/uL (0.00-0.20); Basophils % (auto) 0.2 %; Immature Granulocytes # (auto) 0.17 K/uL (0.01-0.20); Immature Granulocytes % (auto) 1.1 %; Lymphocytes # (auto) 0.69 K/uL (1.20-3.40); Lymphocytes % (auto) 4.5 %; Monocytes # (auto) 0.19 K/uL (0.11-0.59); Monocytes % (auto) 1.2 %; Neutrophils # (auto) 14.42 K/uL (1.40-6.50); Polychromasia 3+
--- NOTE | 2023-06-06 13:39 | Hospitalist Progress Note ---
Date of Service June 06, 2023 Assessment & Plan (1) Sepsis: Plan: Symptomatic macrocytic anemia Thrombocytosis S/P 3 units PRBCs Patient presented with shortness of breath and palpitation. Her hemoglobin on admission was 5.4. MCV of 116 Ferritin elevated to 651 Total increased bilirubin, elevated AST, ALT and LDH Peripheral smear showed no signs of significant schistocytes Normal vitamin B12, folate levels Elevated reticulocyte count Erythropoietin elevated Stool occult negative. Hepatitis panel negative Haptoglobin less than 8. Direct Fortunato test positive. CT abdomen and pelvis shows enlarged liver. FOBT negative Concern for primary hematologic disorder as Fortunato test is positive with elevated bilirubin, elevated LDH low haptoglobin. Started on IV methylprednisolone 1 g daily as per hematology. To be given 1 more dose today. Bone marrow biopsy done on June 04, 2023; await results. Hematology on board; will follow-up recommendation Lactic acidosis Right flank pain Abnormal urinalysis Less likley UTI --CTA:No acute infectious or inflammatory findings are identified in the abdomen or pelvis. Hepatomegaly and hepatic steatosis. Horseshoe kidney is incidentally noted. --Blood cultures: 2 out of 4 bottles showing gram-positive cocci in clusters. Discussed with microbiology; gram-positive cocaine cluster not Staph aureus as BioFire negative. Await final identification. -- Urine culture grew gamma strep not Enterococcus (60,000 colonies) Status post 3 days of ceftriaxone. Repeat blood culture negative so far. Horseshoe kidneys Incidental finding on CT May need follow-up with urology as outpatient if flank pain persistent Morbid obesity BMI 42 DVT Px: SCDs for now Re: Significant anemia Code Status Full code I updated patient's over the phone at bedside on the request of the p atient. Answered questions/queries. Time spent evaluating patient, direct bedside care, chart review, placing orders, interpretation of diagnostic studies, discussion with consultants, patient, and family members, as well as other required patient management activities is 50-minutes Please note the above document was generated using voice recognition software. It may contain grammatical, syntax or spelling errors. Any formal questions or concerns about the content, text or information contained within the body of this dictation should be directly addressed to the provider for clarification Admission and Anticipated Discharge Date Admission Date: June 02, 2023 Subjective Patient seen and examined at bedside. She reports that she is feeling much better. No complaints of palpitation or dyspnea. Denies fever, chills, chest pain, shortness of breath, abdominal pain or urinary symptoms. No significant overnight events Review of Systems Review of Systems: All systems reviewed & are unremarkable except as noted in Subjective Physical Exam Physical Exam: Physical Exam: Vitals signs as noted above General Appearance: Obese, no apparent distress Head: normocephalic, Atraumatic Eyes: normal inspection, EOMI Neck: supple, Trachea midline Respiratory/Chest: Normal breath sounds, CTA, No accessory muscle use Cardiovascular: S1, S2, No murmur Abdomen/GI:Soft, Non tender, Bowel sounds present Extremities/Musculoskeletal:normal inspection, no edema Neurologic/Psych:AAOX3, grossly no focal neurological deficits Skin: normal color, warm Results & Data Results & Data Vital Signs (Past 12 Hours) Vital Signs Temp Pulse Pulse Resp BP Pulse Ox O2 Del Method 06/06/23 11:38 36.5 C 83 18 120/61 97 Room Air 06/06/23 09:00 75 06/06/23 08:07 36.6 C 87 18 105/54 L 95 Room Air 06/06/23 06:29 36.8 C 85 18 120/72 97 Room Air 06/06/23 04:21 36.6 C 84 20 91/58 L 94 Room Air
[2023-06-06] MEDS: methylPREDNISolone 1,000 MG in DEXTROSE 5% 250 ML IV SCH (19:32)
[2023-06-07 06:10] LABS: Hematocrit (blood only) 23.1 % (37.0-47.0); Hemoglobin 7.3 g/dl (12.0-16.0); Mean Corpuscular Hemoglobin 36.3 pg (25.0-34.0); Mean Corpuscular Hgb Conc 31.6 g/dL (32.0-36.0); Mean Corpuscular Volume 114.9 fL (80.0-100.0); Mean Platelet Volume 9.5 fL (9.4-12.4); Nucleated RBC # (auto) 0.05 K/uL (0.00-0.12); Nucleated RBC % (auto) 0.5 %; Platelet Count 299 K/uL (130-400); RDW Coefficient of Variation 22.5 % (11.5-14.5); RDW Standard Deviation 87.5 fL (36.4-46.3); Red Blood Count 2.01 M/uL (4.20-5.40); White Blood Count 10.77 K/ul (4.8-10.8)
[2023-06-07 06:12] LABS: Albumin Globulin Ratio 1.7 (0.9-2); Albumin Level 4.1 gm/dl (3.4-5.0); BUN Creatinine Ratio 25.3 (10-20); Bilirubin,Total 1.3 mg/dl (0.2-1.0); Calcium 8.2 mg/dl (8.6-10.3); Creatinine Clr Calc Pharmacy 104.8 ml/min; Est GFR (Non-African American) 94.9 ml/min; Globulin 2.4 gm/dl (2.5-4.0); Potassium 4.2 mmol/L (3.5-5.1); Total Protein 6.5 gm/dl (6.0-8.3)
[2023-06-07 06:59] LABS: Anisocytosis Present; Basophils # (auto) 0.01 K/uL (0.00-0.20); Basophils % (auto) 0.1 %; Immature Granulocytes # (auto) 0.13 K/uL (0.01-0.20); Immature Granulocytes % (auto) 1.2 %; Lymphocytes # (auto) 0.68 K/uL (1.20-3.40); Lymphocytes % (auto) 6.3 %; Macrocytosis Present; Monocytes # (auto) 0.13 K/uL (0.11-0.59); Monocytes % (auto) 1.2 %; Neutrophils # (auto) 9.82 K/uL (1.40-6.50); Neutrophils % (auto) 91.2 %; Polychromasia 3+
[2023-06-07] MEDS ORDERED: cefTRIAXone SODIUM 2,000 MG in DEXTROSE 5 % MINI-B 50 ML IV SCH (11:00)
--- NOTE | 2023-06-07 12:07 | Hematology/Oncology Prog Note ---
Date of Service June 07, 2023 Assessment & Plan (1) Severe anemia: Plan: Severe warm AIHA, responded to stress dose steroid. To be discharged home on oral steroids, prednisone taper. Follow-up in hematology next week with repeat CBC. Plan Severe warm AIHA, responded to stress dose steroid. Admission and Anticipated Discharge Date Admission Date: June 02, 2023 Subjective . Patient feeling much better, fatigue is improved. Reports no active bleeding or bruise Review of Systems Review of Systems: All systems reviewed & are unremarkable except as noted in HPI & below Constitutional: as per Subjective / HPI Eyes: as per Subjective / HPI Ear, Nose, Mouth, Throat: as per Subjective / HPI Respiratory: as per Subjective / HPI Cardiovascular: as per Subjective / HPI Gastrointestinal: as per Subjective / HPI Genitourinary: as per Subjective / HPI Physical Exam Constitutional: WD/WN, vitals as above well developed and well nourished Eyes: PERRL, conjunctivae normal, anicteric sclerae ENMT: external ear and nose normal, oropharynx normal Neck: trachea midline, no thyromegaly Respiratory: normal respiratory effort, lungs clear to auscultation Cardiovascular: RRR, no murmur, no edema Gastrointestinal (Abdomen): normal bowel sounds, soft, nontender, no hepatosplenomegaly Musculoskeletal: no cyanosis or clubbing, extremities motor strength 5/5 Skin: no rashes, warm and dry Neurologic: patellar DTR's 2+ bilat, sensation intact Psychiatric: A+Ox3, euthymic affect Results & Data Vital Signs (Past 12 Hours) Vital Signs Temp Pulse Pulse Resp BP BP Pulse Ox 06/07/23 11:16 36.5 C 89 18 118/70 97 06/07/23 08:01 36.4 C L 83 18 99/63 L 96 06/07/23 05:56 75 06/07/23 04:16 36.5 C 72 20 94/59 L 97 06/07/23 01:40 36.9 C 84 20 100/63 98 O2 Del Method 06/07/23 11:16 Room Air 06/07/23 08:01 Room Air 06/07/23 05:56 06/07/23 04:16 Room Air 06/07/23 01:40 Room Air
[2023-06-07] MEDS ORDERED: predniSONE 20 MG TAB PO SCH (12:30)
--- NOTE | 2023-06-07 14:21 | Discharge Summary ---
Date of Service June 07, 2023 Admission HPI Per Admitting Provider History obtained from patient, family, and records. No significant medical history. 2 days history of palpitations associated with worsening shortness of breath especially on exertion. No actual chest pain or headache complaints. Patient noted herself to be pale. Achy flank pain complaints without abdominal pain, black stools, bloody stools, hematuria, menorrhagia symptoms. No OTC herbal meds except for cranberry preparation. No previous blood transfusions. Patient brought by to ER for evaluation. Medical History as above Surgical History : Right hand glass trauma surgery Family History : DM, heart disease Personal/Social history : Non-smoker, no EtOH intake, currently unemployed, previous work at a [employer] Admission Exam Per Admitting Provider GENERAL: Comfortable, slightly anxious, morbidly obese, no respiratory distress SKIN: Pallor, warm HEENT: Pale palpebral conjunctivae, no ptosis, dry buccal mucosa NECK : Supple, short neck, no tenderness CHEST : CTA, no tenderness HEART : Tachycardic, no obvious murmurs ABDOMEN: Some distention, nontender EXTREMITIES : Minimal LE swelling, no LE tenderness, no other conspicuous deformities noted NEUROLOGIC : Coherent, no facial asymmetry, no other gross focality Principal Diagnosis Symptomatic Anemia Autoimmune hemolytic anemia Discharge Exam Constitutional: WD/WN, vitals as above, NAD, sitting up in bed, pleasant, conversing easily Respiratory: normal respiratory effort, lungs clear to auscultation, no wheeze, rales, rhonchi. Normal insp/exp effort, no accessory muscle use Cardiovascular: RRR, no murmur, no edema Vessels: no JVD or carotid bruit Chest: normal inspection of chest Abdomen: normal bowel sounds, soft, nontender, no hepatosplenomegaly Musculoskeletal: no cyanosis or clubbing, extremities motor strength 5/5 Skin: no rashes, warm and dry normal turgor Neurologic: PERRL, EOMI, accommodation nl, no face palsy, no dysarthria CN's II- XI intact bilaterally and moves all extremities Psychiatric: A+Ox3, euthymic affect Discharge Data Allergies Allergy/AdvReac Type Severity Reaction Status Date / Time No Known Allergies Allergy Verified 06/02/23 17:35 Consultations 06/02/23 19:26 ED Decision to Admit Stat 06/02/23 21:27 Consult Hematology Routine 06/07/23 11:05 Consult Infectious Diseases Routine Ordered Studies 06/02/23 17:35 CT Abd and Pelvis [CT abd pelvis IV con only] Stat 06/02/23 18:17 US gallbladder Stat 06/04/23 09:10 IR bone marrow bx & asp Routine Hospital Course (1) Severe anemia: Possible warm autoimmune hemolytic anemia Sepsis ruled out Patient presented with shortness of breath and palpitation. Hemoglobin on admission was 5.4. MCV of 116 Ferritin elevated to 651 Total increased bilirubin, elevated AST, ALT and LDH Peripheral smear showed no signs of significant schistocytes Normal vitamin B12, folate levels Elevated reticulocyte count Erythropoietin elevated Stool occult negative. Hepatitis panel negative Haptoglobin less than 8. Direct Fortunato test positive. CT abdomen and pelvis shows enlarged liver. FOBT negative During the hospitalization, patient was transfused 3 units of packed RBC. Hematology was consulted for possible hemolytic anemia. Given patient's elevated bilirubin, elevated LDH and low haptoglobin; concern for primary hematologic disorder. Possible AIHA. Patient underwent bone marrow biopsy on June 04, 2023. Patient received 1 g of IV Solu-Medrol for 3 days as per hematology recommendation. Patient's hemoglobin is stabilized around 7. Total bilirubin down trended. At discharge, patient was placed on prednisone taper as per recommendation by hematology. Patient to follow-up with hematology. Of note, 2 out of 4 blood culture on admission showed Staphylococcus species, PCR did not detect aureus, epidermidis. Repeat culture on June 05 did not grow any organisms. Discussion was done with infectious disease( Dr. Meyer); the blood cultures are likely contaminants. No further workup was deemed to be necessary. Patient to follow-up with PCP and hematology. Bone marrow biopsy results were still pending at discharge. Please note the above document was generated using voice recognition software. It may contain grammatical, syntax or spelling errors. Any formal questions or concerns about the content, text or information contained within the body of this dictation should be directly addressed to the provider for clarification Total Time Total Time Spent Total Time Spent (In Minutes): 45 Total Time Includes: Examination of the Patient, Discharge Planning, Medication Reconciliation, Communication With Other Providers and Other Discharge Plan Discharge Items Patient Disposition: Home - Self-Care Reason For Visit: SEPSIS, SYMPTOMATIC ANEMIA Discharge Diagnosis: Symptomatic anemia Possible autoimmune hemolytic anemia Activity: Resume your previous activity Non-emergency contact: Primary Care Provider Call non-emergency contact if: you have any medication questions and your symptoms worsen Follow-up/Referrals: Mandy Barrientos MD [Primary Care Provider] - (Date & Time 06/14/2023 10:40 AM Provider Emilie Willima PA-C Department Family Medicine [facility] ) Diet: Regular Addtl Attending Provider Instructions: You were admitted to the hospital due to low hemoglobin level. You received 3 units of blood during the hospitalization. You were evaluated by hematology during the hospitalization. You underwent bone marrow biopsy as well. The results of the bone marrow biopsy is still pending. You are prescribed prednisone 10 mg. Please take it as instructed below; 60 mg( 6 tablets) once a day for 6 days(starting tomorrow) 50 mg ( 5 tablets)once a day for 7 days 40 mg( 4 tablets) once a day for 7 days 30 mg (3 tablets)once a day for 7 days 20 mg (2 tablets)once a day for 7 days 10 mg (1 tablet)once a day for 7 days When you are nearing the completion of the steroid course; you might need further taper with 5 mg for 1 to 2 weeks and then 2.5 mg for 2 weeks. Please discuss with your primary care doctor and medicare insurance specialist regarding this. You will be called with an appointment with medicare insurance specialist for sometime next week. If they do not reach out to you; please call them for the appointment. You are prescribed omeprazole while you are on the steroid course as it can cause some GI discomfort. You can take the steroid with some food to minimize the symptoms. Pending Studies at Discharge: Yes (Babesia DNA pcr, Bone marrow biopsy test ) Studies:: Babesia DNA pcr and Bone marrow biopsy Stand-Alone Forms[facility] Medications and DC Order Prescriptions: New prednisone 10 mg tablet See Taper PO DAILY Qty: 141 0RF Taper: Taper, Blank 60 mg DAILY for 6 Days 50 mg DAILY for 7 Days 40 mg DAILY for 7 Days 30 mg DAILY for 7 Days 20 mg DAILY for 7 Days 10 mg DAILY for 7 Days omeprazole 20 mg capsule,delayed release(DR/EC) 20 mg PO DAILY Qty: 30 0RF Continued naproxen sodium [Aleve] 220 mg Tablet 440 mg PO DIRECTED PRN (Reason: Pain) Discontinued Azo Cranberry 250 mg Tablet,Chewable 250 mg PO DIRECTED PRN (Reason: BLADDER DISCOMFORT) Discharge Orders: Discharge Order (Routine); Ordered 06/07/23 Ordered By: Elpidio Alford Admission Data Admit Date/Time: 06/02/23 21:26 Attending Provider: Elpidio Alford Admit Provider: Armen Bruce Primary Care Provider: Mandy Barrientos Other Providers: Armen Bruce; Akshat Nixon; Padmaja Coleman; Amy Aiken; Rachana Li; Jef Alexander; Isis Álvarez; Elba Mcpherson; Severiano Dumont; Osvaldo Win; Nyla Mahmood; timEric,No Attending; Derek May; Annie Alonso; Pardeep Walker I.; Pascual Gross II; Shantell Garcia; Surendra Mcintosh; Bennie Dan; Ivan Meyer; Bruno Murphy Other Interventions: Discharge Summary Assessment (RN) Last Done: 06/07/23 13:23
[2023-06-09 20:53] LABS: Babesia microti DNA Not Detected (Not Detected)
== END 2023-06-07 15:19 | disposition home or self-care (01) | DRG 809 ==
LOC: ED 15:36 → SUATTDRO 21:26 → 2N 21:26